=== PATIENT | male | born 1965 | race African-American/Black ===

== ENCOUNTER 2016-10-27 12:17 | Inpatient (IN) | payer SELFPAY ==
[~2016-10-27] VITALS: Ht 198.1 cm; Wt 158.0 kg
[2016-10-27] VITALS (7 sets, daily range): BP systolic 152–240; BP diastolic 70–102; PULSE 68–87; RESP 16–37; TEMP 97.1–97.7; O2SAT 96–100
[~2016-10-27 12:17] MED LIST: BENI40TA31 PO; BYST10TA2 PO; JANU50TA9 PO
--- NOTE | 2016-10-27 12:35 | PD ---
HPI Chief Complaint: Dizziness Time Seen by Provider: 12:35 Travel History International Travel<30 days: No Contact w/Intl Traveler<30days: No Traveled to known affect area: No History of Present Illness HPI Patient comes in complaining of dizziness that began last night. Patient denies any pain anywhere. Denies any headache, chest pain, shortness of breath , new numbness or tingling anywhere, fevers, nausea, vomiting, loss change in bowel or bladder, or visual changes. Patient states he started becoming diaphoretic approximately 2 hours prior to coming in. Patient states it last night he drank some water and try to lay down, but continued feeling dizzy today. Patient states he's not had his antihypertensive medications or diabetic medications for several months secondary to not having a primary care doctor currently. Patient denies taking any blood thinners. Patient reports he does have left-sided weakness from previous stroke that is unchanged since symptoms began. PFSH Past Medical History Cardiovascular Problems: Yes Diabetes: Yes Social History Alcohol Use: No Tobacco Use: No Substance Use: No Allergies-Medications (Allergen,Severity, Reaction): Coded Allergies: No Known Allergies (Unverified , 10/27/16) Reported Meds & Prescriptions Reported Meds & Active Scripts Active No Active Prescriptions or Reported Medications Review of Systems Except as stated in HPI: all other systems reviewed are Neg Physical Exam Narrative GENERAL: Well-developed, overly nourished, in no acute distress, and non-ill appearing. SKIN: Diaphoretic. HEAD: Atraumatic. Normocephalic. EYES: Pupils equal and round. EOMI. No scleral icterus. No injection or drainage. ENT: No nasal bleeding or discharge. Mucous membranes pink and moist. NECK: Trachea midline. No JVD. Supple. No nuclear rigidity. CARDIOVASCULAR: Regular rate and rhythm. No murmur appreciated. RESPIRATORY: No accessory muscle use. No respiratory distress. Clear to auscultation. Breath sounds equal bilaterally. MUSCULOSKELETAL: No obvious deformities. No clubbing. No cyanosis. No edema. Full range of motion. NEUROLOGICAL: Awake and alert. No obvious cranial nerve deficits. Motor grossly within normal limits. Normal speech. Smile is symmetrical. There is no deviation of the tongue. Equal rise and fall of the eyebrows. No pronator drift. PSYCHIATRIC: Appropriate mood and affect; insight and judgment normal. Data Data Last Documented VS Vital Signs Date Time Temp Pulse Resp B/P (MAP) Pulse Ox O2 Delivery O2 Flow Rate FiO2 10/27/16 12:44 68 22 185/79 (114) 99 Nasal Cannula 2.00 10/27/16 12:28 97.6 Orders Orders Electrocardiogram (10/27/16 12:31) Complete Blood Count With Diff (10/27/16 12:31) Comprehensive Metabolic Panel (10/27/16 12:31) Magnesium (Mg) (10/27/16 12:31) Ckmb (Isoenzyme) Profile (10/27/16 12:31) Troponin I (10/27/16 12:31) Act Partial Throm Time (Ptt) (10/27/16 12:31) Prothrombin Time / Inr (Pt) (10/27/16 12:31) Urinalysis - C+S If Indicated (10/27/16 12:31) Chest, Single Ap (10/27/16 12:31) Ct Brain W/O Iv Contrast(Rout) (10/27/16 12:31) Blood Glucose (10/27/16 12:31) Ecg Monitoring (10/27/16 12:31) Iv Access Insert/Monitor (10/27/16 12:31) Oximetry (10/27/16 12:31) Sodium Chloride 0.9% Flush (Ns Flush) (10/27/16 12:45) Labetalol Inj (Trandate Inj) (10/27/16 12:45) Beta Hydroxybutyrate (Acetone) (10/27/16 12:38) CKMB (10/27/16 12:35) CKMB% (10/27/16 12:35) Sodium Chlorid 0.9% 500 Ml Inj (Ns 500 M (10/27/16 13:45) Aspirin Chew (Aspirin Chew) (10/27/16 13:45) Admit Order (Ed Use Only) (10/27/16 13:55) Labs Laboratory Tests Test 10/27/16 12:35 White Blood Count 13.6 TH/MM3 Red Blood Count 4.91 MIL/MM3 Hemoglobin 16.1 GM/DL Hematocrit 47.5 % Mean Corpuscular Volume 96.7 FL Mean Corpuscular Hemoglobin 32.8 PG Mean Corpuscular Hemoglobin Concent 33.9 % Red Cell Distribution Width 12.6 % Platelet Count 250 TH/MM3 Mean Platelet Volume 9.4 FL Neutrophils (%) (Auto) 51.5 % Lymphocytes (%) (Auto) 40.4 % Monocytes (%) (Auto) 7.6 % Eosinophils (%) (Auto) 0.2 % Basophils (%) (Auto) 0.3 % Neutrophils # (Auto) 7.0 TH/MM3 Lymphocytes # (Auto) 5.5 TH/MM3 Monocytes # (Auto) 1.0 TH/MM3 Eosinophils # (Auto) 0.0 TH/MM3 Basophils # (Auto) 0.0 TH/MM3 CBC Comment AUTO DIFF Differential Total Cells Counted 100 Neutrophils % (Manual) 59 % Band Neutrophils % 4 % Lymphocytes % 36 % Basophils % 1 % Neutrophils # (Manual) 8.6 TH/MM3 Differential Comment FINAL DIFF MANUAL Platelet Estimate NORMAL Platelet Morphology Comment NORMAL Red Cell Morphology Comment NORMAL Prothrombin Time 10.6 SEC Prothromb Time International Ratio 1.0 RATIO Activated Partial Thromboplast Time 22.4 SEC Blood Urea Nitrogen 14 MG/DL Creatinine 1.11 MG/DL Random Glucose 250 MG/DL Total Protein 8.4 GM/DL Albumin 3.7 GM/DL Calcium Level 8.8 MG/DL Magnesium Level 2.0 MG/DL Alkaline Phosphatase 84 U/L Aspartate Amino Transf (AST/SGOT) 27 U/L Alanine Aminotransferase (ALT/SGPT) 42 U/L Total Bilirubin 0.6 MG/DL Sodium Level 138 MEQ/L Potassium Level 3.7 MEQ/L Chloride Level 101 MEQ/L Carbon Dioxide Level 24.1 MEQ/L Anion Gap 13 MEQ/L Estimat Glomerular Filtration Rate 84 ML/MIN Total Creatine Kinase 198 U/L Creatine Kinase MB 2.4 NG/ML Troponin I LESS THAN 0.02 NG/ML B-Hydroxybutyrate 0.29 MMOL/L [facility] Medical Decision Making Medical Screen Exam Complete: Yes Emergency Medical Condition: Yes Interpretation(s) EKG reviewed by Dr. Pepe shows sinus rhythm with ventricular rate of 75. T -wave inversions noted in leads 1 V5 and V6. No STEMI. Chest x-ray read by the radiologist shows: Mildly enlarged cardiac silhouette. Otherwise negative exam. Consider further evaluation with echocardiography. CT head read by the radiologist shows: 1. Small area of decreased density in the right centrum semi-ovale location. The appearance suggests a small subacute infarct. No focal or acute intracranial hemorrhage. Recommend MRI of the brain for further evaluation. 2. Bilateral chronic maxillary sinus disease, right greater than left. Differential Diagnosis CVA, TIA, acute coronary syndrome, accelerated hypertension, symptomatic hypertension, vertigo, electrolyte abnormality, DKA, other Narrative Course Patient was seen and examined. IV was established. Patient was placed on conveyor monitor. Initial laboratory and radiological studies were ordered. Discussed patient with Dr. Pepe, who recommends giving patient's 20 mg of IV labetalol for his pressure. Patient was given 500 cc of IV fluid. 1310 patient reassessed reports he is feeling much better since his blood pressure has come down. Reports dizziness has resolved. He states he is just hungry currently. And reviewing lab and radiological studies with the exception of urine and has not been collected yet, discussed all findings and plan of care with the patient , who is agreeable for admission. All questions were answered. Patient was given a dose of aspirin. Discussed patient with Dr. Pepe, who is in agreement with plan of care and disposition. Discussed patient with hospitalist , who is agreeable to this patient. Physician Communication Physician Communication [phone] Piers, who is agreeable to admit the patient. Diagnosis Primary Impression: CVA (cerebral infarction) Additional Impression: Hypertension Qualified Codes: I10 - Essential (primary) hypertension Admitting Information Admitting Physician Requests: Admit Scripts No Active Prescriptions or Reported Meds Condition: Star Malagon Oct 27, 2016 12:35
[2016-10-27] MEDS ORDERED: LABETALOL HCL 100 MG/20 ML VIAL IV PUSH ONE (12:45)
[2016-10-27 12:49] LABS: BASOPHIL % 0.3 % (0.0-2.0); EOSINOPHIL % 0.2 % (0.0-4.0); HEMATOCRIT 47.5 % (39.0-51.0); LYMPH % 40.4 % (9.0-44.0); LYMPHOCYTE # 5.5 TH/MM3 (1.0-4.8); MEAN CELL VOLUME 96.7 FL (80.0-100.0); MEAN CORPUSCULAR HEMOGLOBIN 32.8 PG (27.0-34.0); MEAN CORPUSCULAR HGB CONC 33.9 % (32.0-36.0); MONO % 7.6 % (0.0-8.0); NEUT % 51.5 % (16.0-70.0); PLATELET COUNT 250 TH/MM3 (150-450); RED BLOOD COUNT 4.91 MIL/MM3 (4.50-5.90); RED CELL DISTRIBUTION WIDTH 12.6 % (11.6-17.2); WHITE BLOOD COUNT 13.6 TH/MM3 (4.0-11.0)
[2016-10-27 12:50] LABS: HEMO FLAGS AUTO DIFF
[2016-10-27 12:58] LABS: APTT (PATIENT) 22.4 SEC (24.3-30.1); PROTHROMBIN TIME - PATIENT 10.6 SEC (9.8-11.6)
--- NOTE | 2016-10-27 13:02 | RADRPT ---
EXAM DATE/TIME: 10/27/2016 13:01 CORRECTION Corrected on: October 30, 2016; removed cc physician GILBERTO COMPARISON: No previous studies available for comparison. INDICATIONS : Palpitations MEDICAL HISTORY : Hypertension. Diabetes mellitus type II. SURGICAL HISTORY : None. ENCOUNTER: Initial ACUITY: 2 days PAIN SCORE: 0/10 LOCATION: chest FINDINGS: A single view of the chest demonstrates the lungs to be symmetrically aerated without evidence of mas s, infiltrate or effusion. The heart size appears mildly enlarged. The pulmonary vasculature is gross ly normal in caliber. Osseous structures are intact. CONCLUSION: Mildly enlarged cardiac silhouette. Otherwise negative exam. Consider further evaluation with echocar diography. . Purvi Aguilar MD on October 27, 2016 at 12:59 Board Certified Radiologist. This report was verified electronically. on October 30, 2016 at 12:30 Board Certified Radiologist. This report was verified electronically.
[2016-10-27 13:13] LABS: ALKALINE PHOSPHATASE 84 U/L (45-117); ALT (GPT) 42 U/L (12-78); CREATINE KINASE 198 U/L (39-308); TOTAL BILIRUBIN ADULT 0.6 MG/DL (0.2-1.0)
[2016-10-27 13:14] LABS: ANION GAP 13 MEQ/L (5-15); AST (GOT) 27 U/L (15-37); BICARBONATE 24.1 MEQ/L (21.0-32.0); BLOOD UREA NITROGEN 14 MG/DL (7-18); CHLORIDE 101 MEQ/L (98-107); GLOMERULAR FILTRATION RATE 84 ML/MIN (>89); POTASSIUM 3.7 MEQ/L (3.5-5.1); SODIUM (NA) 138 MEQ/L (136-145)
[2016-10-27 13:26] LABS: CKMB 2.4 NG/ML (0.5-3.6)
--- NOTE | 2016-10-27 13:37 | RADRPT ---
EXAM DATE/TIME: 10/27/2016 13:21 CORRECTION Corrected on: October 30, 2016; removed cc physician GILBERTO COMPARISON: No previous studies available for comparison. INDICATIONS : Dizziness, diaphoretic,weakness. RADIATION DOSE: 69.66 CTDIvol (mGy) ; Patient body habitus MEDICAL HISTORY : Cardiovascular disease. Cerebrovascular disease. Hypertension.Diabetes. SURGICAL HISTORY : None. ENCOUNTER: Initial ACUITY: 1 day PAIN SCALE: 0/10 LOCATION: cranial TECHNIQUE: Multiple contiguous axial images were obtained of the head. Using automated exposure control and adj ustment of the mA and/or kV according to patient size, radiation dose was kept as low as reasonably a chievable to obtain optimal diagnostic quality images. DICOM format image data is available electro nically for review and comparison. FINDINGS: CEREBRUM: The ventricles are normal for age. No evidence of midline shift, mass lesion, hemorrhage. There is a small area of decreased density in the right centrum semi-ovale location suggestive of a focal small subacute infarct. No extra-axial fluid collections are seen. POSTERIOR FOSSA: The cerebellum and brainstem are intact. The 4th ventricle is midline. The cerebellopontine angle i s unremarkable. EXTRACRANIAL: The visualized portion of the orbits is intact. Chronic sinus disease in the maxillary sinuses bilate rally, right greater than left. SKULL: The calvaria is intact. No evidence of skull fracture. CONCLUSION: 1. Small area of decreased density in the right centrum semi-ovale location. The appearance suggests a small subacute infarct. No focal or acute intracranial hemorrhage. Recommend MRI of the brain for f urther evaluation. 2. Bilateral chronic maxillary sinus disease, right greater than left. Chepe Macario MD on October 27, 2016 at 13:34 Board Certified Radiologist. This report was verified electronically. on October 30, 2016 at 12:29 Board Certified Radiologist. This report was verified electronically.
[2016-10-27 13:40] LABS: BANDS 4 % (0-6); BASOPHILS 1 % (0-2); NEUTROPHIL # MANUAL DIFF 8.6 TH/MM3 (1.8-7.7); POLYS (SEG NEUTROPHILS) 59 % (16-70); WBC DIFF SAMPLE 100
[2016-10-27 13:41] LABS: PLATELET ESTIMATE SMEAR NORMAL (NORMAL); PLATELET MORPHOLOGY NORMAL (NORMAL); SCAN/DIFF FINAL DIFF MANUAL
[2016-10-27] MEDS ORDERED: SODIUM CHLORID 0.9% 500 ML INJ 500 ML IV ONE (13:45)
[2016-10-27] MEDS ORDERED: ASPIRIN 81 MG CHEW TAB PO ONE (13:45)
[2016-10-27] MEDS ORDERED: GLUCAGON 1 MG/ML VIAL OTHER PRN (14:45)
[2016-10-27] MEDS ORDERED: ONDANSETRON HCL 4 MG/2 ML VIAL IVP PRN (14:45)
[2016-10-27] MEDS ORDERED: ENALAPRILAT 1.25 MG/ML VIAL IV PRN (14:45)
[2016-10-27] MEDS ORDERED: DEXTROSE 50% IN WATER 50 ML VIAL(D50) IV PRN (14:45)
[2016-10-27] MEDS ORDERED: SODIUM CHLORIDE 0.9% FLUSH 5 ML FLUSH IV FLUSH PRN (14:45)
[2016-10-27] MEDS ORDERED: ACETAMINOPHEN 325 MG TAB PO PRN ×2 (14:45)
--- NOTE | 2016-10-27 14:47 | HHI.HP ---
[facility] Service [facility] Primary Care Physician No Primary Care Physician Admission Diagnosis CVA, symptomatic hypertension Diagnoses: (1) Alcohol abuse (2) Obesity (BMI 30-39.9) (3) Hyperlipidemia (4) Diabetes mellitus type 2, uncontrolled, with complications (5) Hypertensive emergency (6) CVA (cerebral infarction) Chief Complaint: Dizziness and profuse diaphoresis Travel History International Travel<30 Days: No Contact w/Intl Traveler <30 Da: No Traveled to Known Affected Are: No History of Present Illness 51-year-old male with multiple comorbidities including hypertension, hyperlipidemia, diabetes type 2, previous CVA in 2012 with left side weakness came to the ED for evaluation of worsening symptom dizziness, lightheadedness and profuse diaphoresis. Patient stated, episode of dizziness started yesterday but did not improve today after he woke up from sleep. They' re on 11:30, patient's notice that his equilibrium was off. This was followed by more episode of dizziness as well as 1 nonbloody emesis. He also reported a sensation of room spinning. Arrival in the ED, patient was noted to be extremely diaphoretic which he states did start 2 hours prior to coming to the ED. he was noted to have BP of 240/102 which subsequently improved to 163/70 with treatment. Patient has run out of his medications over the past [address] revealed small subacute CVA. He denies any visual change, slurred speech has no GI bleed. Review of Systems Except as stated in HPI: all other systems reviewed are Neg Past Family Social History Past Medical History Diabetes Hyperlipidemia Hypertension CVA 2013 Alcohol abuse Past Surgical History Denies any surgeries Reported Medications Not Currently on any medication Allergies: Coded Allergies: No Known Allergies (Unverified , 10/27/16) Family History Mother had diabetes type 2 Father had heart problem Social History Alcohol Use: No Tobacco Use: + Substance Use: No Physical Exam Vital Signs Vital Signs Date Time Temp Pulse Resp B/P (MAP) Pulse Ox O2 Delivery O2 Flow Rate FiO2 10/27/16 14:21 97.6 72 21 163/70 (101) 100 10/27/16 12:44 68 22 185/79 (114) 99 Nasal Cannula 2.00 10/27/16 12:42 24 27 97 Room Air 10/27/16 12:34 74 37 224/100 (141) 97 Room Air 10/27/16 12:28 97.6 77 24 224/100 (141) 98 Room Air 10/27/16 12:21 97.7 76 24 240/102 (148) 96 Room Air Physical Exam GENERAL: This is a well-nourished, well-developed obese patient, in no apparent distress. SKIN: No rashes, ecchymoses or lesions. Cool and dry. HEAD: Atraumatic. Normocephalic. No temporal or scalp tenderness. EYES: Pupils equal round and reactive. Extraocular motions intact. No scleral icterus. No injection or drainage. ENT: Nose without bleeding, purulent drainage or septal hematoma. Throat without erythema, tonsillar hypertrophy or exudate. Uvula midline. Airway patent. NECK: Trachea midline. No JVD or lymphadenopathy. Supple, nontender, no meningeal signs. CARDIOVASCULAR: Regular rate and rhythm without murmurs, gallops, or rubs. RESPIRATORY: Clear to auscultation. Breath sounds equal bilaterally. No wheezes , rales, or rhonchi. GASTROINTESTINAL: Abdomen soft, non-tender, nondistended. No hepato-splenomegaly , or palpable masses. No guarding. MUSCULOSKELETAL: Extremities without clubbing, cyanosis, or edema. No joint tenderness, effusion, or edema noted. No calf tenderness. Negative Homans sign bilaterally. NEUROLOGICAL: Awake and alert. Cranial nerves II through XII intact. Mild Left- sided weakness. Normal speech. Laboratory Laboratory Tests Test 10/27/16 12:35 White Blood Count 13.6 Red Blood Count 4.91 Hemoglobin 16.1 Hematocrit 47.5 Mean Corpuscular Volume 96.7 Mean Corpuscular Hemoglobin 32.8 Mean Corpuscular Hemoglobin Concent 33.9 Red Cell Distribution Width 12.6 Platelet Count 250 Mean Platelet Volume 9.4 Neutrophils (%) (Auto) 51.5 Lymphocytes (%) (Auto) 40.4 Monocytes (%) (Auto) 7.6 Eosinophils (%) (Auto) 0.2 Basophils (%) (Auto) 0.3 Neutrophils # (Auto) 7.0 Lymphocytes # (Auto) 5.5 Monocytes # (Auto) 1.0 Eosinophils # (Auto) 0.0 Basophils # (Auto) 0.0 CBC Comment AUTO DIFF Differential Total Cells Counted 100 Neutrophils % (Manual) 59 Band Neutrophils % 4 Lymphocytes % 36 Basophils % 1 Neutrophils # (Manual) 8.6 Differential Comment FINAL DIFF MANUAL Platelet Estimate NORMAL Platelet Morphology Comment NORMAL Red Cell Morphology Comment NORMAL Prothrombin Time 10.6 Prothromb Time International Ratio 1.0 Activated Partial Thromboplast Time 22.4 Blood Urea Nitrogen 14 Creatinine 1.11 Random Glucose 250 Total Protein 8.4 Albumin 3.7 Calcium Level 8.8 Magnesium Level 2.0 Alkaline Phosphatase 84 Aspartate Amino Transf (AST/SGOT) 27 Alanine Aminotransferase (ALT/SGPT) 42 Total Bilirubin 0.6 Sodium Level 138 Potassium Level 3.7 Chloride Level 101 Carbon Dioxide Level 24.1 Anion Gap 13 Estimat Glomerular Filtration Rate 84 Total Creatine Kinase 198 Creatine Kinase MB 2.4 Troponin I LESS THAN 0.02 B-Hydroxybutyrate 0.29 Result Diagram: 10/27/16 1235 10/27/16 1235 Imaging Last Impressions Head CT 10/27/16 1231 Signed Impressions: Service Date/Time: Thursday, October 27, 2016 13:21 - CONCLUSION: 1. Small area of decreased density in the right centrum semi-ovale location. The appearance suggests a small subacute infarct. No focal or acute intracranial hemorrhage. Recommend MRI of the brain for further evaluation. 2. Bilateral chronic maxillary sinus disease, right greater than left. Chepe Macario MD Chest X-Ray 10/27/16 1231 Signed Impressions: Service Date/Time: Thursday, October 27, 2016 13:01 - CONCLUSION: Mildly enlarged cardiac silhouette. Otherwise negative exam. Consider further evaluation with echocardiography. . MD Raven Sunshinei VTE Risk Assessment Caprini VTE Risk Assessment: No/Low Risk (score <= 1) Caprini Risk Assessment Model Point Value = 1 Point Value = 2 Point Value = 3 Point Value = 5 Age 41-60 Minor surgery BMI > 25 kg/m2 Swollen legs Varicose veins or History of unexplained or recurrent spontaneous Oral contraceptives or hormone replacement Sepsis (< 1 month) Serious lung disease, including pneumonia (< 1 month) Abnormal pulmonary function Acute myocardial infarction Congestive heart failure (< 1 month) History of inflammatory bowel disease Medical patient at bed rest Age 61-74 Arthroscopic surgery Major open surgery (> 45 min) Laparoscopic surgery (> 45 min) Malignancy Confined to bed (> 72 hours) Immobilizing plaster cast Central venous access Age >= 75 History of VTE Family history of VTE Factor V Leiden Prothrombin [id number] Lupus anticoagulant Anticardiolipin antibodies Elevated serum homocysteine Heparin-induced thrombocytopenia Other congenital or acquired thrombophilia Stroke (< 1 month) Elective arthroplasty Hip, pelvis, or leg fracture Acute spinal cord injury (< 1 month) Prophylaxis Regimen Total Risk Factor Score Risk Level Prophylaxis Regimen 0-1 Low Early ambulation 2 Moderate Order ONE of the following: *Sequential Compression Device (SCD) *Heparin 5000 units SQ BID 3-4 Higher Order ONE of the following medications: *Heparin 5000 units SQ TID *Enoxaparin/Lovenox 40 mg SQ daily (WT < 150 kg, CrCl > 30 mL/min) *Enoxaparin/Lovenox 30 mg SQ daily (WT < 150 kg, CrCl > 10-29 mL/min) *Enoxaparin/Lovenox 30 mg SQ BID (WT < 150 kg, CrCl > 30 mL/min) AND/OR *Sequential Compression Device (SCD) 5 or more Highest Order ONE of the following medications: *Heparin 5000 units SQ TID (Preferred with Epidurals) *Enoxaparin/Lovenox 40 mg SQ daily (WT < 150 kg, CrCl > 30 mL/min) *Enoxaparin/Lovenox 30 mg SQ daily (WT < 150 kg, CrCl > 10-29 mL/min) *Enoxaparin/Lovenox 30 mg SQ BID (WT < 150 kg, CrCl > 30 mL/min) AND *Sequential Compression Device (SCD) Assessment and Plan Problem List: (1) CVA (cerebral infarction) ICD Code: I63.9 - CVA (cerebral infarction) Status: Acute (2) Hypertensive emergency ICD Code: I16.1 - Hypertensive emergency (3) Diabetes mellitus type 2, uncontrolled, with complications ICD Code: E11.8 - Type 2 diabetes mellitus with unspecified complications; E11.65 - Type 2 diabetes mellitus with hyperglycemia (4) Obesity (BMI 30-39.9) ICD Code: E66.9 - Obesity, unspecified (5) Hyperlipidemia ICD Code: E78.5 - Hyperlipidemia, unspecified (6) Alcohol abuse ICD Code: F10.10 - Alcohol abuse, uncomplicated Assessment and Plan 51-year-old man with Small subacute infarct Patient with previous history of CVA in 2013 Start aspirin and Lipitor NIHSS, neuro check, monitor on telemetry Allowed permissive hypertension, IV Vasotec when necessary Check lipid profile and hemoglobin A1c Check carotid ultrasound and consider EEG Head CT 10/27/16 noted and review by me with finding of small subacute infarct Check brain MRI, MRA, carotid ultrasound Will consider neuro consult PT consult to treat and eval Hypertensive emergency Resolved status post treatment in ED Check 2-D echo Elevated cardiac enzyme Likely due to hypertensive emergency However will rule out ACS per protocol with serial cardiac enzyme and EKGs 2-D echo pending Cardiac monitoring Diabetes type 2, uncontrolled Check hemoglobin A1c Start Levemir 15 units at bedtime and medium sliding scale insulin Hyperlipidemia Check lipid profile Start Lipitor Leukocytosis Stress reactive, continue to monitor Alcohol abuse Alcohol cessation counseling provided ESTER Garza protocol DVT prophylaxis: Heparin Code Status Full code Discussed Condition With Patient, , ED PA Physician Certification 2 Midnight Certification Type: Admission for Inpatient Services Order for Inpatient Services The services are ordered in accordance with Medicare regulations or non- Medicare payer requirements, as applicable. In the case of services not specified as inpatient-only, they are appropriately provided as inpatient services in accordance with the 2-midnight benchmark. Estimated LOS (days): 2 days is the estimated time the patient will need to remain in the hospital, assuming treatment plan goals are met and no additional complications. Post-Hospital Plan: Not yet determined Valentin Pires MD Oct 27, 2016 14:47
[2016-10-27] MEDS ORDERED: FLUMAZENIL 0.5 MG/5 ML VIAL IV PUSH PRN (15:15)
[2016-10-27] MEDS ORDERED: LORazepam 2 MG TAB PO PRN (15:15)
[2016-10-27] MEDS ORDERED: LORazepam 2 MG/ML VIAL IV PUSH PRN ×4 (15:15)
[2016-10-27] MEDS ORDERED: LORazepam 1 MG TAB PO PRN (15:15)
[2016-10-27] MEDS: HEPARIN SODIUM - SQ 10,000 UNITS/ML VIAL SQ SCH (15:59)
[2016-10-27] MEDS: INSULIN ASPART SUPPLEMENTAL SCALE SQ SCH ×2 (16:00→21:38)
[2016-10-27 16:19] LABS: BLOOD, URINE NEG (NEG); GLUCOSE,URINE 1000 mg/dL (NEG); KETONE, URINE 10 mg/dL (NEG); NITRITE,URINE NEG (NEG); PH, URINE 6.5 (5.0-8.5); SQUAMOUS EPITHELIAL CELL URINE <1 /hpf (0-5); URINE COLOR YELLOW (YELLW/STRAW)
[2016-10-27 16:20] LABS: COMMENT (UR) CULT NOT INDICATED; CULTURE IF INDICATED CULT NOT INDICATED
--- NOTE | 2016-10-27 17:17 | RADRPT ---
EXAM DATE/TIME: 10/27/2016 16:27 [facility] COMPARISON: No previous studies available for comparison. INDICATIONS : Dizziness, Sweatiness, Weakness and Hypertension MEDICAL HISTORY : Stroke Hypertension. Diabetes mellitus type 1. SURGICAL HISTORY : ENCOUNTER: Initial ACUITY: 1 day PAIN SCORE: 0/10 LOCATION: cranial TECHNIQUE: Multiplanar, multisequence MRI of the brain was performed without contrast. FINDINGS: CEREBRUM: The ventricles are normal for age. No evidence of midline shift, mass lesion, hemorrhage or acute in farction. No extraaxial fluid collections are seen. The pituitary gland and suprasellar cistern are normal in configuration. WHITE MATTER: Scattered chronic flair signal abnormality seen in the periventricular white matter of both vertebral hemispheres, mild to moderate in a patient this age. POSTERIOR FOSSA: The cerebellum and brainstem are intact. The 4th ventricle is midline. The cerebellopontine angle is unremarkable. The cerebellar tonsils are normal in position. DIFFUSION IMAGING: There is a 3.8 x 4.9 cm area of restricted diffusion inferomedially of the right cerebellar hemispher e. The abnormality involves the vermis and also focally crosses the midline into the medial posterior left cerebellar hemisphere. There is no restricted diffusion above the tentorium. EXTRACRANIAL: The visualized portions of the orbits and paranasal sinuses are unremarkable. CONCLUSION: 1. Relatively large acute infarct of the cerebellum as above, predominantly involving the inferomedia l portions of the right cerebellar hemisphere. 2. No acute supratentorial abnormality demonstrated. There are mild to moderate chronic periventricul ar white matter changes. 3. No bleed, mass or midline shift. No cerebellar tonsillar herniation at this time. Tres Sequeira MD on October 27, 2016 at 17:11 Board Certified Radiologist. This report was verified electronically.
--- NOTE | 2016-10-27 17:52 | RADRPT ---
EXAM DATE/TIME: 10/27/2016 16:27 [facility] COMPARISON: No previous studies available for comparison. INDICATIONS : Dizziness, Sweatiness, Hypertension, Weakness MEDICAL HISTORY : Stroke Diabetes mellitus type 1. Hypertension. SURGICAL HISTORY : None. ENCOUNTER: ACUITY: 1 day PAIN SCORE: 0/10 LOCATION: cranial Please note a normal MRA of the brain does not entirely exclude the possibility of a small aneurysm, nor the possibility of distal intracranial vessel disease. TECHNIQUE: 3D time of flight MRA was performed. Source images, multiplanar STS MIP, and 3D volume MIP reconstru ctions were reviewed. FINDINGS: There is excellent visualization of the major intracranial arteries out to the second-order branch ve ssels. There is no evidence for aneurysm, vessel truncation or stenosis, and no evidence for vascula r malformation. CONCLUSION: No acute disease. Binu Powell MD on October 27, 2016 at 17:49 Board Certified Radiologist. This report was verified electronically.
[2016-10-27] MEDS: SODIUM CHLORIDE 0.9% FLUSH 5 ML FLUSH IV FLUSH SCH (21:00)
[2016-10-27] MEDS: ATORVASTATIN 10 MG TAB PO SCH (21:16)
[2016-10-27] MEDS: SODIUM CHLORIDE 0.9% FLUSH 10 ML FLUSH IVF PRN (21:16)
[2016-10-27] MEDS: INSULIN DETEMIR 100 UNITS/ML VIAL SQ SCH (21:37)
[2016-10-27 21:57] LABS: CREATINE KINASE 144 U/L (39-308)
--- NOTE | 2016-10-27 22:43 | RADRPT ---
EXAM DATE/TIME: 10/27/2016 20:43 [place] COMPARISON: No previous studies available for comparison. INDICATIONS : Cerebrovascular accident. MEDICAL HISTORY : Arthritis. Hypertension. Hypercholesterolemia. CVA. Diabetes. SURGICAL HISTORY : Total knee replacement, right. Total knee replacement, left. ENCOUNTER: Initial ACUITY: 1 day PAIN SCORE: 0/10 LOCATION: Bilateral neck PEAK SYSTOLIC VELOCITIES (cm/sec): ICA/CCA RATIO: Right: 0.7 Left: 0.6 ICA: Right: 95 Left: 82 CCA: Right: 148 Left: 217 ECA: Right: 122 Left: 220 VERTEBRAL: Right: 35 antegrade Left: 54 antegrade Elevated flow velocities and ICA/CCA ratios have been found to correlate with increased degrees of vessel stenosis, calculated as percentage of diameter relative to a normal segment of distal ICA/CCA FINDINGS: RIGHT CAROTID: No significant stenosis is visualized. The waveforms are within normal limits. LEFT CAROTID: Elevated peak systolic velocities are noted within the left common and external carotid arteries in t he range of 50-69%. No internal carotid artery peak systolic velocity elevation is noted. The wavefor ms are within normal limits. VERTEBRAL ARTERIES: Antegrade flow is seen in both vertebral arteries. MISCELLANEOUS: None. CONCLUSION: 1. No hemodynamically significant stenosis involving the internal carotid arteries bilaterally. 2. Probable 50-69% stenoses involving the left common and external carotid arteries. Binu Powell MD on October 27, 2016 at 22:39 Board Certified Radiologist. This report was verified electronically.
[2016-10-28] VITALS (8 sets, daily range): BP systolic 168–194; BP diastolic 77–90; PULSE 77–93; RESP 16–20; TEMP 97.8–98.6; O2SAT 95–98
[2016-10-28 01:13] LABS: CREATINE KINASE 139 U/L (39-308)
[2016-10-28] MEDS: HEPARIN SODIUM - SQ 10,000 UNITS/ML VIAL SQ SCH ×2 (03:28→14:45)
[2016-10-28] MEDS: INSULIN ASPART SUPPLEMENTAL SCALE SQ SCH ×4 (06:34→21:00)
[2016-10-28 08:22] LABS: HDL CHOLESTEROL 46.7 MG/DL (40.0-60.0)
[2016-10-28] MEDS: SODIUM CHLORIDE 0.9% FLUSH 5 ML FLUSH IV FLUSH SCH ×2 (09:00→21:00)
[2016-10-28] MEDS ORDERED: LISINOPRIL 20 MG TAB PO SCH (09:00)
[2016-10-28] MEDS: THIAMINE HCL 100 MG TAB PO SCH (09:53)
[2016-10-28] MEDS: ASPIRIN 81 MG CHEW TAB PO SCH (09:53)
[2016-10-28] MEDS: SODIUM CHLORIDE 0.9% FLUSH 10 ML FLUSH IVF PRN (09:53)
--- NOTE | 2016-10-28 11:25 | HHI.PR ---
Subjective Remarks Follow-up CVA 10/28/16-patient seen and examined, brain MRI positive for large acute infarct of the cerebellum. Although patient continues to complain of equilibrium problem as he described it, he reported improvement of symptoms since admission. Objective Vitals Vital Signs Date Time Temp Pulse Resp B/P (MAP) Pulse Ox O2 Delivery O2 Flow Rate FiO2 10/28/16 08:16 97.8 81 20 172/81 (111) 97 10/28/16 04:00 98.6 87 20 194/88 (123) 95 10/28/16 03:53 81 10/28/16 00:20 98.0 88 16 192/87 (122) 98 10/27/16 20:00 97.1 87 18 217/93 (134) 97 10/27/16 18:02 10/27/16 16:00 74 16 152/73 (99) 100 Room Air 10/27/16 14:21 97.6 72 21 163/70 (101) 100 10/27/16 12:44 68 22 185/79 (114) 99 Nasal Cannula 2.00 10/27/16 12:42 24 27 97 Room Air 10/27/16 12:34 74 37 224/100 (141) 97 Room Air 10/27/16 12:28 97.6 77 24 224/100 (141) 98 Room Air 10/27/16 12:21 97.7 76 24 240/102 (148) 96 Room Air I/O 10/27/16 10/27/16 10/27/16 10/28/16 10/28/16 10/28/16 07:00 15:00 23:00 07:00 15:00 23:00 Intake Total 500 ml Output Total 650 ml Balance 500 ml -650 ml Intake IV Total 500 ml Output Urine Total 650 ml # Voids 1 1 Result Diagram: 10/27/16 1235 10/27/16 1235 Imaging Last Impressions Head CT 10/27/16 1231 Signed Impressions: Service Date/Time: Thursday, October 27, 2016 13:21 - CONCLUSION: 1. Small area of decreased density in the right centrum semi-ovale location. The appearance suggests a small subacute infarct. No focal or acute intracranial hemorrhage. Recommend MRI of the brain for further evaluation. 2. Bilateral chronic maxillary sinus disease, right greater than left. Chepe Macario MD Chest X-Ray 10/27/16 1231 Signed Impressions: Service Date/Time: Thursday, October 27, 2016 13:01 - CONCLUSION: Mildly enlarged cardiac silhouette. Otherwise negative exam. Consider further evaluation with echocardiography. . Purvi Aguilar MD Head Magnetic Resonance Angiography 10/27/16 0000 Signed Impressions: Service Date/Time: Thursday, October 27, 2016 16:27 - CONCLUSION: No acute disease. Binu Powell MD Carotid Artery Ultrasound 10/27/16 0000 Signed Impressions: Service Date/Time: Thursday, October 27, 2016 20:43 - CONCLUSION: 1. No hemodynamically significant stenosis involving the internal carotid arteries bilaterally. 2. Probable 50-69%% stenoses involving the left common and external carotid arteries. Binu Powell MD Brain MRI 10/27/16 0000 Signed Impressions: Service Date/Time: Thursday, October 27, 2016 16:27 - CONCLUSION: 1. Relatively large acute infarct of the cerebellum as above, predominantly involving the inferomedial portions of the right cerebellar hemisphere. 2. No acute supratentorial abnormality demonstrated. There are mild to moderate chronic periventricular white matter changes. 3. No bleed, mass or midline shift. No cerebellar tonsillar herniation at this time. Tres Sequeira MD Objective Remarks GENERAL: NAD SKIN: Warm and dry. HEAD: Normocephalic. EYES: No scleral icterus. No injection or drainage. NECK: Supple, trachea midline. No JVD or lymphadenopathy. CARDIOVASCULAR: Regular rate and rhythm without murmurs, gallops, or rubs. RESPIRATORY: Breath sounds equal bilaterally. No accessory muscle use. GASTROINTESTINAL: Abdomen soft, non-tender, nondistended. MUSCULOSKELETAL: No cyanosis, or edema. BACK: Nontender without obvious deformity. No CVA tenderness. A/P Problem List: (1) Acute cerebrovascular accident (CVA) of cerebellum ICD Code: I63.9 - Cerebral infarction, unspecified (2) CVA (cerebral infarction) ICD Code: I63.9 - CVA (cerebral infarction) Status: Acute (3) Hypertensive emergency ICD Code: I16.1 - Hypertensive emergency (4) Diabetes mellitus type 2, uncontrolled, with complications ICD Code: E11.8 - Type 2 diabetes mellitus with unspecified complications; E11.65 - Type 2 diabetes mellitus with hyperglycemia (5) Obesity (BMI 30-39.9) ICD Code: E66.9 - Obesity, unspecified (6) Hyperlipidemia ICD Code: E78.5 - Hyperlipidemia, unspecified (7) Alcohol abuse ICD Code: F10.10 - Alcohol abuse, uncomplicated Assessment and Plan 51-year-old man with Acute CVA of the cerebellum Patient with previous history of CVA in 2013 Continue aspirin and Lipitor NIHSS, neuro check, monitor on telemetry Allow permissive hypertension, IV Vasotec when necessary lipid profile 139 and hemoglobin A1c pending carotid ultrasound wnl Head CT 10/27/16 noted and review by me with finding of small subacute infarct brain MRI with acute infarct of the cerebellum, brain MRI MRA negative Neuro consultation Consult rehabilitation medicine; OT consultation pending Holter monitoring PT to treat and eval Hypertensive emergency Resolved status post treatment in ED Check 2-D echo Elevated cardiac enzyme Likely due to hypertensive emergency ACS ruled out per protocol with serial cardiac enzyme and EKGs 2-D echo pending Diabetes type 2, uncontrolled hemoglobin A1c pending Continue Levemir 15 units at bedtime and medium sliding scale insulin Hyperlipidemia lipid profile with LDL of 139 Continue Lipitor Leukocytosis Stress reactive, continue to monitor Alcohol abuse Alcohol cessation counseling provided ESTER Garza protocol DVT prophylaxis: Heparin Valentin Pires MD Oct 28, 2016 11:25
--- NOTE | 2016-10-28 11:37 | MB ---
cc: CONSUELO ARDON M.D. DATE OF CONSULTATION: 10/28/2016 HISTORY OF PRESENT ILLNESS He is a 51-year-old with history of dizziness since Friday, became intermittently worse and had difficulty with his equilibrium, had difficulty even walking at some point. His blood pressure was reportedly up to 240/102 in the emergency room. Subsequently, an MRI of brain had showed a relatively large right cerebellar infarct, acute. EKG is sinus rhythm and MRA head was negative as well as carotid ultrasound which is negative for internal carotid artery disease. The patient describes that despite of having a history of diabetes mellitus, hyperlipidemia, hypertension, he has been taking no medications at all for the past 2 years. He also had a stroke in 2013 causing left-sided weakness. He denies smoking or drinking alcohol, though the H&P is apparently positive for smoking. NEUROLOGIC EXAMINATION On exam he was awake, alert, oriented, obese and he is in good spirits and pleasant and cooperative. Ocular movements and visual gray full. Mild facial asymmetry when he talks but when he smiles and there was no obvious weakness. The speech was clear. There is no arm drift but he seems to have slightly weak ecd on the left as well as left lower extremity, though he gives away on the exam. Reflexes diminished but present including the ankles, possibly brisk on the left. Plantar response equivocal on the left, flexor on the right and position sense was appropriate. LABORATORY DATA The WBC was 13.6, hemoglobin 16.1, platelets 250. Basic chemistry normal except for glucose 250. LDL is elevated to 139. ASSESSMENT 1. Acute right cerebellar stroke. 2. Previous stroke in 2013 causing left-sided weakness. 3. Diabetes mellitus type 2, hyperlipidemia, hypertension, obesity and possible sleep apnea. 4. Noncompliance with medical care. He was started on a number of medications including aspirin, lisinopril, statin, thiamine. I discussed with the patient the need for aggressive general medical care for the major risk factors for a stroke, otherwise rehab. He will need ___ study for sleep apnea evaluation as outpatient. I will follow the neurological course. Thank you for asking us to assist in his care. MD PRAMOD Daniels/DARIEN /10:08 AM /11:21 AM
--- NOTE | 2016-10-28 15:27 | EKG ---
Date Performed: 10/27/2016 Time Performed: 12:28:46 PTAGE: 51 years EKG: Sinus rhythm MARKED LEFT AXIS DEVIATION LEFT VENTRICULAR HYPERTROPHY AND ST-T CHANGE ABNORMAL ECG NO PREVIOUS TRACING DOCTOR: Dylan Ahumada Interpretating Date/Time 10/28/2016 15:27:21
--- NOTE | 2016-10-28 15:28 | EKG ---
Date Performed: 10/27/2016 Time Performed: 20:10:27 PTAGE: 51 years EKG: Sinus rhythm MARKED LEFT AXIS DEVIATION LEFT VENTRICULAR HYPERTROPHY AND ST-T CHANGE ABNORMAL ECG Since PREVIOUS TRACING , no significant change noted PREVIOUS TRACIN10/27/2016 12.28 DOCTOR: Dylan Ahumada Interpretating Date/Time 10/28/2016 15:27:40
--- NOTE | 2016-10-28 15:30 | EKG ---
Date Performed: 10/28/2016 Time Performed: 02:34:06 PTAGE: 51 years EKG: Sinus rhythm Possible left anterior fascicular block Left ventricular hypertrophy Extensive T wave changes may be due to hypertrophy and/or ischemia Abnormal ECG Compared to PREVIOUS TRACING , precordial T-wave changes are slightly more prominent, consider ischem ia. PREVIOUS TRACIN10/27/2016 20.10 DOCTOR: Dylan Ahumada Interpretating Date/Time 10/28/2016 15:30:04
[2016-10-28 16:12] LABS: HEMOGLOBIN A1b 1.7 %; HEMOGLOBIN Ao 84.9 %; HEMOGLOBIN LA1C 2.5 %; HEMOGLOBIN P3 3.8 %
--- NOTE | 2016-10-28 20:07 | ECHRPT ---
Indication: CVA/ TIA CONCLUSIONS Normal left ventricular size. The left ventricular systolic function is normal with an estimated ejection fraction in the range of 60-65%. Moderate concentric left ventricular hypertrophy. Aortic valve sclerosis is present. Trace aortic valve regurgitation. BP: / HR: Rhythm: Sinus MEASUREMENTS (Male / Female) Normal Values Technical Quality:Very technically difficult study 2D ECHO LV Diastolic Diameter PLAX 5.2 cm 4.2 - 5.9 / 3.9 - 5.3 cm LV Systolic Diameter PLAX 3.8 cm IVS Diastolic Thickness 1.4 cm 0.6 - 1.0 / 0.6 - 0.9 cm LVPW Diastolic Thickness 1.4 cm 0.6 - 1.0 / 0.6 - 0.9 cm LV Relative Wall Thickness 0.6 LVOT Diameter 2.3 cm Aortic Root Diameter 3.3 cm LA Systolic Diameter LX 3.8 cm 3.0 - 4.0 / 2.7 - 3.8 cm M-MODE AV Cusp Separation MM 2.2 cm DOPPLER AV Peak Velocity 80.0 cm/s AV Peak Gradient 2.6 mmHg AV Mean Gradient 2.0 mmHg AV Velocity Time Integral 15.0 cm LVOT Peak Velocity 57.9 cm/s LVOT Peak Gradient 1.3 mmHg LVOT Velocity Time Integral 8.5 cm AV Area Cont Eq vti 2.4 cm AV Area Cont Eq pk 3.0 cm Mitral E Point Velocity 60.2 cm/s Mitral A Point Velocity 55.8 cm/s Mitral E to A Ratio 1.1 LV E' Lateral Velocity 9.9 cm/s Mitral E to LV E' Lateral Ratio 6.1 LV E' Septal Velocity 8.9 cm/s Mitral E to LV E' Septal Ratio 6.8 PV Peak Velocity 84.2 cm/s PV Peak Gradient 2.8 mmHg FINDINGS RIGHT VENTRICLE Normal right ventricular size and systolic function. LEFT ATRIUM The left atrial size is normal. RIGHT ATRIUM The right atrium is not well visualized. ATRIAL SEPTUM The interatrial septum not well visualized. AORTA The aortic root and proximal ascending aorta are not well visualized. MITRAL VALVE Structurally normal mitral valve. No mitral valve stenosis. No mitral valve regurgitation. AORTIC VALVE Aortic valve sclerosis is present. No aortic valve stenosis. Trace aortic valve regurgitation. TRICUSPID VALVE The tricuspid valve is not well visualized. PULMONARY VALVE The pulmonary valve is not well visualized. No pulmonary valve regurgitation. No pulmonary stenosis. VESSELS The inferior vena cava was not well visualized. Otakar Quadrat MD, FACC (Electronically Signed) Final Date:28 October 2016 20:07
[2016-10-28] MEDS: INSULIN DETEMIR 100 UNITS/ML VIAL SQ SCH (21:26)
[2016-10-28] MEDS: ATORVASTATIN 10 MG TAB PO SCH (21:37)
[2016-10-28] MEDS: ACETAMINOPHEN/HYDROcodone 325 MG/5 MG TAB PO PRN (21:38)
[2016-10-29] VITALS (7 sets, daily range): BP systolic 168–191; BP diastolic 77–91; PULSE 73–81; RESP 17–19; TEMP 97.9–98.7; O2SAT 94–99
[2016-10-29] MEDS: HEPARIN SODIUM - SQ 10,000 UNITS/ML VIAL SQ SCH ×2 (03:34→13:19)
[2016-10-29] MEDS: INSULIN ASPART SUPPLEMENTAL SCALE SQ SCH ×4 (07:00→21:04)
[2016-10-29] MEDS: SODIUM CHLORIDE 0.9% FLUSH 5 ML FLUSH IV FLUSH SCH ×2 (09:00→21:27)
[2016-10-29] MEDS: THIAMINE HCL 100 MG TAB PO SCH (09:03)
[2016-10-29] MEDS: LISINOPRIL 20 MG TAB PO SCH ×2 (09:03→21:27)
[2016-10-29] MEDS: ASPIRIN 81 MG CHEW TAB PO SCH (09:04)
[2016-10-29] MEDS ORDERED: ENALAPRILAT 2.5 MG/2 ML VIAL IV PUSH PRN (10:30)
--- NOTE | 2016-10-29 10:35 | HHI.PR ---
Subjective Remarks Follow-up CVA 10/28/16-patient seen and examined, brain MRI positive for large acute infarct of the cerebellum. Although patient continues to complain of equilibrium problem as he described it, he reported improvement of symptoms since admission. 10/29/16-patient seen and examined, with some issue with equilibrium with standing otherwise stable. by the bedside Objective Vitals Vital Signs Date Time Temp Pulse Resp B/P (MAP) Pulse Ox O2 Delivery O2 Flow Rate FiO2 10/29/16 08:00 98.2 79 17 184/91 (122) 94 10/29/16 03:46 98.1 79 18 191/90 (123) 98 10/29/16 00:52 97.9 79 18 182/78 (112) 99 10/28/16 21:08 98.3 77 18 187/90 (122) 95 10/28/16 16:45 98.1 88 20 168/77 (107) 96 10/28/16 12:27 98.1 79 20 169/78 (108) 96 I/O 10/28/16 10/28/16 10/28/16 10/29/16 10/29/16 10/29/16 06:59 14:59 22:59 06:59 14:59 22:59 Intake Total 480 ml Balance 480 ml Intake Oral 480 ml # Voids 1 5 # Bowel Movements 1 Result Diagram: 10/27/16 1235 10/27/16 1235 Imaging Last Impressions Head CT 10/27/16 1231 Signed Impressions: Service Date/Time: Thursday, October 27, 2016 13:21 - CONCLUSION: 1. Small area of decreased density in the right centrum semi-ovale location. The appearance suggests a small subacute infarct. No focal or acute intracranial hemorrhage. Recommend MRI of the brain for further evaluation. 2. Bilateral chronic maxillary sinus disease, right greater than left. Chepe Macario MD Chest X-Ray 10/27/16 1231 Signed Impressions: Service Date/Time: Thursday, October 27, 2016 13:01 - CONCLUSION: Mildly enlarged cardiac silhouette. Otherwise negative exam. Consider further evaluation with echocardiography. . Purvi Aguilar MD Head Magnetic Resonance Angiography 10/27/16 0000 Signed Impressions: Service Date/Time: Thursday, October 27, 2016 16:27 - CONCLUSION: No acute disease. Binu Powell MD Carotid Artery Ultrasound 10/27/16 0000 Signed Impressions: Service Date/Time: Thursday, October 27, 2016 20:43 - CONCLUSION: 1. No hemodynamically significant stenosis involving the internal carotid arteries bilaterally. 2. Probable 50-69%% stenoses involving the left common and external carotid arteries. Binu Powell MD Brain MRI 10/27/16 0000 Signed Impressions: Service Date/Time: Thursday, October 27, 2016 16:27 - CONCLUSION: 1. Relatively large acute infarct of the cerebellum as above, predominantly involving the inferomedial portions of the right cerebellar hemisphere. 2. No acute supratentorial abnormality demonstrated. There are mild to moderate chronic periventricular white matter changes. 3. No bleed, mass or midline shift. No cerebellar tonsillar herniation at this time. Tres Sequeira MD Objective Remarks GENERAL: NAD SKIN: Warm and dry. HEAD: Normocephalic. EYES: No scleral icterus. No injection or drainage. NECK: Supple, trachea midline. No JVD or lymphadenopathy. CARDIOVASCULAR: Regular rate and rhythm without murmurs, gallops, or rubs. RESPIRATORY: Breath sounds equal bilaterally. No accessory muscle use. GASTROINTESTINAL: Abdomen soft, non-tender, nondistended. MUSCULOSKELETAL: No cyanosis, or edema. BACK: Nontender without obvious deformity. No CVA tenderness. Procedures none A/P Problem List: (1) Acute cerebrovascular accident (CVA) of cerebellum ICD Code: I63.9 - Cerebral infarction, unspecified (2) CVA (cerebral infarction) ICD Code: I63.9 - CVA (cerebral infarction) Status: Acute (3) Hypertensive emergency ICD Code: I16.1 - Hypertensive emergency (4) Diabetes mellitus type 2, uncontrolled, with complications ICD Code: E11.8 - Type 2 diabetes mellitus with unspecified complications; E11.65 - Type 2 diabetes mellitus with hyperglycemia (5) Obesity (BMI 30-39.9) ICD Code: E66.9 - Obesity, unspecified (6) Hyperlipidemia ICD Code: E78.5 - Hyperlipidemia, unspecified (7) Alcohol abuse ICD Code: F10.10 - Alcohol abuse, uncomplicated Assessment and Plan 51-year-old man with Acute CVA of the cerebellum Patient with previous history of CVA in 2013 Continue aspirin and Lipitor NIHSS, neuro check, monitor on telemetry d/c permissive hypertension lipid profile 139 and hemoglobin A1c 6.0 carotid ultrasound with 50-60% stenoses involving the left common and external carotid artery Head CT 10/27/16 noted and review by me with finding of small subacute infarct brain MRI with acute infarct of the cerebellum, brain MRI MRA negative Neurology input appreciated Consult rehabilitation medicine; OT consultation pending Holter monitoring PT to treat and eval Hypertensive emergency Resolved status post treatment in ED 2-D echo 60-65% EF Labile hypertension Increase lisinopril to 20 mg every 12 hours and add clonidine 0.2 mg every 8H Elevated cardiac enzyme Likely due to hypertensive emergency ACS ruled out per protocol with serial cardiac enzyme and EKGs 2-D echo with 60-65% EF Diabetes type 2, uncontrolled hemoglobin A1c 6.0 therefore will hold Levemir 15 units at bedtime and continue medium sliding scale insulin Hyperlipidemia lipid profile with LDL of 139 Continue Lipitor Leukocytosis Stress reactive, continue to monitor Alcohol abuse Alcohol cessation counseling provided ESTER Garza protocol DVT prophylaxis: Heparin Valentin Pires MD Oct 29, 2016 10:35
[2016-10-29] MEDS: cloNIDine HCL 0.2 MG TAB PO SCH ×2 (13:20→21:26)
--- NOTE | 2016-10-29 16:02 | HM ---
Date Performed: 10/28/2016 Time Performed: 10:11:00 HOOKUP DATE: 10/28/16 10:11:00 AM Mon ANALYSIS START TIME: 10/28/2016 10:16:00 AM ANALYSIS END TIME: 10/29/2016 9:56:42 AM PATIENT AGE: 51 PATIENT HEIGHT PATIENT WEIGHT DRUG LIST PATIENT DIAGNOSIS: CVA TEST NARRATIVE: The patient's average heart rate was 80 BPM. No episodes of tachycardia wer e noted. No episodes of bradycardia were noted. No pauses exceeding 2.0 seconds were noted. 374 ventricular ectopics, which represented < 1% of the total beat count, were noted. The highest ve ntricular ectopic frequency occurred from 03:00 AM to 04:00 AM Tue. During this time 25 VE(s) occurr ed. Ventricular ectopics were observed as 372 isolated beat(s) and as 1 couplet(s). No runs were no rafi. No supraventricular ectopics were noted. Multiple episodes of ST depression (defined as -1.0 mm or more) were noted in channel 1. The maximum depression of -1.2 mm occurred at 04:15:38 PM Mon. No episodes of ST depression (defined as -1.0 mm or more) were noted in channel 2. No episode s of ST depression (defined as -1.0 mm or more) were noted in channel 3. no diary maintained TEST INTERPRETATION: Patient undergoes holter monitor to see if there is any relationship of his neurologic complaints with a rhythm disturbance. No diary is provided. Only the expanded tracings ar e subject to interpretation. Patient is in Sinus rhythm throughout the monitoring session with occassional PVCs and one possible couplet. No complex ventric ular ectopy is noted. No supraventricular rhythm disturbances are noted. No bradycardias noted. Concl usions: 1) essentially normal holter monitor with rare PVCs, 2) no complex ventricular ectopy, 3) no significant tachyarrhythmias or bradyarrhythmias, 4) no diary provided, so it is unknown as to whethe r the patient is symptomatic. Sig ghulam by : Elena Colon
--- NOTE | 2016-10-29 17:10 | PD.CONS ---
[facility] Service Rehabilitation Medicine Consult Requested By Valentin Pires M.D. Reason for Consult Comprehensive rehabilitation evaluation. Primary Care Physician No Primary Care Physician History of Present Illness Binu Diaz is a 51-year-old male admitted [facility] 10/27/16 with dizziness and diaphoresis. BP was 240/102. Head CT shows small decreased density in the right centrum semiovale [place] consistent with subacute infarct. Brain MRI showed right cerebellar infarct 3.8 x 4.9 cm. Aspirin has been started. Review of Systems Constitutional: COMPLAINS OF: Fatigue Eyes: COMPLAINS OF: Blurred vision, DENIES: Diplopia Ears, nose, mouth, throat: DENIES: Hearing loss Respiratory: DENIES: Shortness of breath Cardiovascular: DENIES: Chest pain Gastrointestinal: DENIES: Abdominal pain Genitourinary: COMPLAINS OF: Urgency, DENIES: Urinary incontinence Musculoskeletal: DENIES: Back pain Integumentary: DENIES: Rash Hematologic/lymphatic: DENIES: Bruising Immunologic/allergic: DENIES: Urticaria Neurologic: COMPLAINS OF: Localized weakness, Paresthesias, Poor Balance, DENIES: Headache, Speech Problems Psychiatric: DENIES: Confusion Past Family Social History Allergies: Coded Allergies: No Known Allergies (Unverified , 10/27/16) Past Medical History Hypertension Hyperlipidemia Diabetes type 2 Cerebrovascular accident with left-sided weakness 2012 Past Surgical History None Current Medications Current Medications Medications (Trade) Dose Ordered Sig/Maribell Route Start Time Stop Time Status Last Admin (NS Flush) 2 ml UNSCH PRN IVF 10/27/16 12:45 10/28/16 09:53 (NS Flush) 2 ml BID IV FLUSH 10/27/16 21:00 10/29/16 09:00 (NS Flush) 2 ml UNSCH PRN IV FLUSH 10/27/16 14:45 (Aspirin Chew) 81 mg DAILY PO 10/28/16 09:00 10/29/16 09:04 (Lipitor) 10 mg HS PO 10/27/16 21:00 10/28/16 21:37 (Heparin Inj) 5,000 units Q12H SQ 10/27/16 14:45 10/29/16 13:19 (Tylenol) 650 mg Q4H PRN PO 10/27/16 14:45 (Zofran Inj) 4 mg Q6H PRN IVP 10/27/16 14:45 (Tylenol) 650 mg Q6H PRN PO 10/27/16 14:45 ([place] 5-325 Mg) 1 tab Q4H PRN PO 10/27/16 14:45 10/28/16 21:38 (D50w (Vial) Inj) 50 ml UNSCH PRN IV 10/27/16 14:45 (Glucagon Inj) 1 mg UNSCH PRN OTHER 10/27/16 14:45 (NovoLOG SUPPLEMENTAL SCALE) 1 ACHS SLIDING SCALE SQ 10/27/16 16:00 10/28/16 16:00 (Levemir Inj) 15 units HS SQ 10/27/16 21:00 Future Hold 10/28/16 21:26 (Romazicon Inj) 0.2 mg Q1M PRN IV PUSH 10/27/16 15:15 (Ativan) 1 mg Q4H PRN PO 10/27/16 15:15 (Ativan Inj) 1 mg Q4H PRN IV PUSH 10/27/16 15:15 (Ativan) 2 mg Q2H PRN PO 10/27/16 15:15 (Ativan Inj) 2 mg Q2H PRN IV PUSH 10/27/16 15:15 (Ativan Inj) 2 mg Q1H PRN IV PUSH 10/27/16 15:15 (Ativan Inj) 2 mg Q15M PRN IV PUSH 10/27/16 15:15 (Vitamin B1) 100 mg DAILY PO 10/28/16 09:00 10/29/16 09:03 (Prinivil) 20 mg Q12HR PO 10/29/16 09:00 10/29/16 09:03 (Vasotec Inj) 2.5 mg Q6H PRN IV PUSH 10/29/16 10:30 (Catapres) 0.2 mg Q8HR PO 10/29/16 14:00 10/29/16 13:20 Family History Mother: Diabetes mellitus Father: Heart disease Social History Prior to admission patient lived in [facility], he occasionally used a cane due to residual left-sided weakness. He was independent with ADLs. Exam I&O / VS 10/29/16 10/29/16 10/30/16 14:59 22:59 06:59 Intake Total 720 ml Output Total 1 ml Balance -1 ml 720 ml Intake Oral 720 ml Output Urine Total 1 ml # Voids 1 2 # Bowel Movements 1 1 Vital Signs Date Time Temp Pulse Resp B/P (MAP) Pulse Ox O2 Delivery O2 Flow Rate FiO2 10/29/16 16:00 97.9 79 17 168/77 (107) 98 10/29/16 12:00 98.0 80 17 183/90 (121) 98 10/29/16 11:09 73 10/29/16 08:00 98.2 79 17 184/91 (122) 94 10/29/16 03:46 98.1 79 18 191/90 (123) 98 10/29/16 00:52 97.9 79 18 182/78 (112) 99 10/28/16 21:08 98.3 77 18 187/90 (122) 95 General: No acute distress Respiratory: Lungs CTA, Non-labored respirations, BS equal Gastrointestinal: Positive Bowel Sounds, Non-Distended, Non-Tender Cardiovascular: Normal rate, Normal peripheral perfusion, Regular Rhythm Skin: Other (no rash noted) Musculoskeletal: Swelling (no distal lower extremity edema) Psychiatric: Cooperative, Appropriate mood & affect Orientation: oriented to Self, oriented to Place, oriented to Time, oriented to Situation Neurologic: Pupils (PERRLA), EOM (intact), Visual Alvarado (intact to confrontation), Facial Symmetry (symmetric), Speech (no dysarthria or word finding difficulties), Coordination (decreased in the left upper extremity) Motor: Right Upper Extremity (5/5), Left Upper Extremity (4+/5), Right Lower Extremity (5/5), Left Lower Extremity (4/5) Sensory Intact to light touch in the upper lower extremities DTRs: Normal Babinski: Positive Clonus: Negative Assessment and Plan Diagnosis: (1) Impaired gait ICD Codes: R26.9 - Impaired gait Status: Acute (2) Acute cerebrovascular accident (CVA) of cerebellum ICD Codes: I63.9 - Cerebral infarction, unspecified Assessment 1. Right cerebellar ischemic stroke 2. Impaired mobility and ADLs due to above 3. Hypertension 4. Hyperlipidemia 5. Diabetes mellitus type 2 6. Previous stroke 2013 with residual left-sided weakness Plan 1. Patient is progressing with mobility and now contact guard to min assist with physical therapy for transfers and gait 120 feet with walker. Would continue to mobilize anticipating patient should progress well 2. Occupational therapy is addressing ADLs and minimal assistance for lower body dressing but independent for feeding and grooming 3. Tolerating regular diet. 4. Discussed fall prevention 5. SCDs and mobilization for DVT prophylaxis 6. Case management is assisting with [facility]. Will follow in outpatient clinic to facilitate referral for outpatient physical therapy to maximize mobility as appropriate Thank you for this consult Daina Lenz MD Oct 29, 2016 17:10
[2016-10-29] MEDS: ATORVASTATIN 10 MG TAB PO SCH (21:27)
[2016-10-29] MEDS: ACETAMINOPHEN/HYDROcodone 325 MG/5 MG TAB PO PRN (21:29)
[2016-10-30] VITALS (7 sets, daily range): BP systolic 143–165; BP diastolic 66–80; PULSE 64–77; RESP 18–20; TEMP 97.8–98.4; O2SAT 96–99
[2016-10-30] MEDS: HEPARIN SODIUM - SQ 10,000 UNITS/ML VIAL SQ SCH ×2 (02:28→13:32)
[2016-10-30] MEDS: cloNIDine HCL 0.2 MG TAB PO SCH ×3 (05:49→23:46)
[2016-10-30] MEDS: INSULIN ASPART SUPPLEMENTAL SCALE SQ SCH ×4 (06:40→20:40)
[2016-10-30] MEDS: THIAMINE HCL 100 MG TAB PO SCH (08:36)
[2016-10-30] MEDS: ASPIRIN 81 MG CHEW TAB PO SCH (08:37)
[2016-10-30] MEDS: LISINOPRIL 20 MG TAB PO SCH ×2 (08:37→20:38)
[2016-10-30] MEDS: SODIUM CHLORIDE 0.9% FLUSH 5 ML FLUSH IV FLUSH SCH ×2 (08:38→20:42)
--- NOTE | 2016-10-30 11:55 | HHI.PR ---
Subjective Remarks Follow-up CVA 10/28/16-patient seen and examined, brain MRI positive for large acute infarct of the cerebellum. Although patient continues to complain of equilibrium problem as he described it, he reported improvement of symptoms since admission. 10/29/16-patient seen and examined, with some issue with equilibrium with standing otherwise stable. by the bedside 10/30/16-patient seen and examined, complaining of dizzy feeling when up, got. Drug urine Otherwise no complaint of dysuria Objective Vitals Vital Signs Date Time Temp Pulse Resp B/P (MAP) Pulse Ox O2 Delivery O2 Flow Rate FiO2 10/30/16 08:21 97.9 71 20 165/77 (106) 98 10/30/16 08:00 77 10/30/16 04:00 98.4 69 20 147/79 (101) 99 10/30/16 00:00 97.9 64 19 143/66 (91) 98 10/29/16 21:25 98.7 81 19 175/77 (109) 97 10/29/16 16:00 97.9 79 17 168/77 (107) 98 10/29/16 12:00 98.0 80 17 183/90 (121) 98 I/O 10/29/16 10/29/16 10/29/16 10/30/16 10/30/16 10/30/16 07:00 15:00 23:00 07:00 15:00 23:00 Intake Total 720 ml Output Total 1 ml 550 ml Balance -1 ml 170 ml Intake Oral 720 ml Output Urine Total 1 ml 550 ml # Voids 1 1 2 1 # Bowel Movements 1 1 Result Diagram: 10/27/16 1235 10/27/16 1235 Objective Remarks GENERAL: NAD SKIN: Warm and dry. HEAD: Normocephalic. EYES: No scleral icterus. No injection or drainage. NECK: Supple, trachea midline. No JVD or lymphadenopathy. CARDIOVASCULAR: Regular rate and rhythm without murmurs, gallops, or rubs. RESPIRATORY: Breath sounds equal bilaterally. No accessory muscle use. GASTROINTESTINAL: Abdomen soft, non-tender, nondistended. MUSCULOSKELETAL: No cyanosis, or edema. BACK: Nontender without obvious deformity. No CVA tenderness. Procedures none A/P Problem List: (1) Acute cerebrovascular accident (CVA) of cerebellum ICD Code: I63.9 - Cerebral infarction, unspecified (2) CVA (cerebral infarction) ICD Code: I63.9 - CVA (cerebral infarction) Status: Acute (3) Hypertensive emergency ICD Code: I16.1 - Hypertensive emergency (4) Diabetes mellitus type 2, uncontrolled, with complications ICD Code: E11.8 - Type 2 diabetes mellitus with unspecified complications; E11.65 - Type 2 diabetes mellitus with hyperglycemia (5) Obesity (BMI 30-39.9) ICD Code: E66.9 - Obesity, unspecified (6) Hyperlipidemia ICD Code: E78.5 - Hyperlipidemia, unspecified (7) Alcohol abuse ICD Code: F10.10 - Alcohol abuse, uncomplicated Assessment and Plan 51-year-old man with Acute CVA of the cerebellum Patient with previous history of CVA in 2012 Continue aspirin and Lipitor NIHSS, neuro check, monitor on telemetry s/p permissive hypertension lipid profile 139 and hemoglobin A1c 6.0 carotid ultrasound with 50-60% stenoses involving the left common and external carotid artery Head CT 10/27/16 noted and review by me with finding of small subacute infarct brain MRI with acute infarct of the cerebellum, brain MRI MRA negative Neurology input appreciated Appreciate input from rehabilitation medicine; OT/PT Holter report noted PT to treat and eval Hypertensive emergency Resolved status post treatment in ED 2-D echo 60-65% EF Labile hypertension Continue lisinopril 20 mg every 12 hours and clonidine 0.2 mg every 8H Elevated cardiac enzyme Likely due to hypertensive emergency ACS ruled out per protocol with serial cardiac enzyme and EKGs 2-D echo with 60-65% EF Diabetes type 2, uncontrolled hemoglobin A1c 6.0 and Levemir 15 units at bedtime was discontinued yesterday however will continue medium sliding scale insulin Hyperlipidemia lipid profile with LDL of 139 Continue Lipitor Leukocytosis Stress reactive, continue to monitor Alcohol abuse Alcohol cessation counseling provided ESTER Garza protocol DVT prophylaxis: Heparin Discharge Planning Likely discharge 10/31/16 Valentin Pires MD Oct 30, 2016 11:55
[2016-10-30] MEDS: ATORVASTATIN 10 MG TAB PO SCH (20:38)
[2016-10-31] VITALS: BP 138/64; PULSE 72; RESP 18; TEMP 98.2; O2SAT 98
[2016-10-31] MEDS: HEPARIN SODIUM - SQ 10,000 UNITS/ML VIAL SQ SCH ×2 (05:23→14:15)
[2016-10-31] MEDS: cloNIDine HCL 0.2 MG TAB PO SCH ×2 (06:01→14:15)
[2016-10-31] MEDS: INSULIN ASPART SUPPLEMENTAL SCALE SQ SCH ×2 (06:06→12:17)
[2016-10-31] MEDS: SODIUM CHLORIDE 0.9% FLUSH 10 ML FLUSH IVF PRN (08:07)
[2016-10-31] MEDS: THIAMINE HCL 100 MG TAB PO SCH (08:07)
[2016-10-31] MEDS: LISINOPRIL 20 MG TAB PO SCH (08:08)
[2016-10-31] MEDS: ASPIRIN 81 MG CHEW TAB PO SCH (08:08)
[2016-10-31] MEDS: SODIUM CHLORIDE 0.9% FLUSH 5 ML FLUSH IV FLUSH SCH (09:00)
[2016-10-31] MEDS ORDERED: BARIATRIC ROLLA1 MIS (11:30)
--- NOTE | 2016-10-31 11:32 | HHI.PR ---
Subjective Remarks Follow-up CVA 10/28/16-patient seen and examined, brain MRI positive for large acute infarct of the cerebellum. Although patient continues to complain of equilibrium problem as he described it, he reported improvement of symptoms since admission. 10/29/16-patient seen and examined, with some issue with equilibrium with standing otherwise stable. by the bedside 10/30/16-patient seen and examined, complaining of dizzy feeling when up, got. Drug urine Otherwise no complaint of dysuria 10/31/16-patient seen and examined, still complain of dizziness otherwise stable Objective Vitals Vital Signs Date Time Temp Pulse Resp B/P (MAP) Pulse Ox O2 Delivery O2 Flow Rate FiO2 10/31/16 00:00 98.2 72 18 138/64 (88) 98 10/30/16 20:00 98.4 74 18 146/67 (93) 98 10/30/16 15:57 98.2 70 20 156/80 (105) 99 10/30/16 11:58 97.8 68 20 157/77 (103) 96 I/O 10/30/16 10/30/16 10/30/16 10/31/16 10/31/16 10/31/16 06:59 14:59 22:59 06:59 14:59 22:59 Intake Total 240 ml Output Total 461 ml Balance -221 ml Intake Oral 240 ml Output Urine Total 460 ml Stool Total 1 ml # Voids 1 4 # Bowel Movements 1 Result Diagram: 10/27/16 1235 10/27/16 1235 Imaging Last Impressions Head CT 10/27/16 1231 Signed Impressions: Service Date/Time: Thursday, October 27, 2016 13:21 - CONCLUSION: 1. Small area of decreased density in the right centrum semi-ovale location. The appearance suggests a small subacute infarct. No focal or acute intracranial hemorrhage. Recommend MRI of the brain for further evaluation. 2. Bilateral chronic maxillary sinus disease, right greater than left. Chepe Macario MD Chest X-Ray 10/27/16 1231 Signed Impressions: Service Date/Time: Thursday, October 27, 2016 13:01 - CONCLUSION: Mildly enlarged cardiac silhouette. Otherwise negative exam. Consider further evaluation with echocardiography. . Purvi Aguilar MD Head Magnetic Resonance Angiography 10/27/16 0000 Signed Impressions: Service Date/Time: Thursday, October 27, 2016 16:27 - CONCLUSION: No acute disease. Binu Powell MD Carotid Artery Ultrasound 10/27/16 0000 Signed Impressions: Service Date/Time: Thursday, October 27, 2016 20:43 - CONCLUSION: 1. No hemodynamically significant stenosis involving the internal carotid arteries bilaterally. 2. Probable 50-69%% stenoses involving the left common and external carotid arteries. Binu Powell MD Brain MRI 10/27/16 0000 Signed Impressions: Service Date/Time: Thursday, October 27, 2016 16:27 - CONCLUSION: 1. Relatively large acute infarct of the cerebellum as above, predominantly involving the inferomedial portions of the right cerebellar hemisphere. 2. No acute supratentorial abnormality demonstrated. There are mild to moderate chronic periventricular white matter changes. 3. No bleed, mass or midline shift. No cerebellar tonsillar herniation at this time. Tres Sequeira MD Objective Remarks GENERAL: NAD SKIN: Warm and dry. HEAD: Normocephalic. EYES: No scleral icterus. No injection or drainage. NECK: Supple, trachea midline. No JVD or lymphadenopathy. CARDIOVASCULAR: Regular rate and rhythm without murmurs, gallops, or rubs. RESPIRATORY: Breath sounds equal bilaterally. No accessory muscle use. GASTROINTESTINAL: Abdomen soft, non-tender, nondistended. MUSCULOSKELETAL: No cyanosis, or edema. BACK: Nontender without obvious deformity. No CVA tenderness. Procedures none A/P Problem List: (1) Acute cerebrovascular accident (CVA) of cerebellum ICD Code: I63.9 - Cerebral infarction, unspecified (2) CVA (cerebral infarction) ICD Code: I63.9 - CVA (cerebral infarction) Status: Acute (3) Hypertensive emergency ICD Code: I16.1 - Hypertensive emergency (4) Diabetes mellitus type 2, uncontrolled, with complications ICD Code: E11.8 - Type 2 diabetes mellitus with unspecified complications; E11.65 - Type 2 diabetes mellitus with hyperglycemia (5) Obesity (BMI 30-39.9) ICD Code: E66.9 - Obesity, unspecified (6) Hyperlipidemia ICD Code: E78.5 - Hyperlipidemia, unspecified (7) Alcohol abuse ICD Code: F10.10 - Alcohol abuse, uncomplicated Assessment and Plan 51-year-old man with Acute CVA of the cerebellum Patient with previous history of CVA in 2013 Continue aspirin and Lipitor NIHSS, neuro check, monitor on telemetry s/p permissive hypertension lipid profile 139 and hemoglobin A1c 6.0 carotid ultrasound with 50-60% stenoses involving the left common and external carotid artery Head CT 10/27/16 noted and review by me with finding of small subacute infarct brain MRI with acute infarct of the cerebellum, brain MRI MRA negative Neurology input appreciated Appreciate input from rehabilitation medicine; OT/PT Holter report noted PT to treat and eval Hypertensive emergency Resolved status post treatment in ED 2-D echo 60-65% EF Labile hypertension Continue lisinopril 20 mg every 12 hours and clonidine 0.2 mg every 8H Elevated cardiac enzyme Likely due to hypertensive emergency ACS ruled out per protocol with serial cardiac enzyme and EKGs 2-D echo with 60-65% EF Diabetes type 2, uncontrolled hemoglobin A1c 6.0 and Levemir 15 units at bedtime was discontinued however will continue medium sliding scale insulin Hyperlipidemia lipid profile with LDL of 139 Continue Lipitor Leukocytosis Stress reactive, continue to monitor Alcohol abuse Alcohol cessation counseling provided ESTER Garza protocol Dizziness Complication from current cerebellar CVA Start meclizine Continue with PT DVT prophylaxis: Heparin Discharge Planning Likely discharge 10/31/16 Valentin Pires MD Oct 31, 2016 11:32
--- NOTE | 2016-10-31 11:38 | HHI.DS ---
Discharge Summary Admission Date Oct 27, 2016 at 13:57 Discharge Date: Oct 31, 2016 Admitting Diagnosis CVA, symptomatic hypertension (1) Acute cerebrovascular accident (CVA) of cerebellum ICD Code: I63.9 - Cerebral infarction, unspecified (2) CVA (cerebral infarction) ICD Code: I63.9 - CVA (cerebral infarction) Status: Acute (3) Hypertensive emergency ICD Code: I16.1 - Hypertensive emergency (4) Diabetes mellitus type 2, uncontrolled, with complications ICD Code: E11.8 - Type 2 diabetes mellitus with unspecified complications; E11.65 - Type 2 diabetes mellitus with hyperglycemia (5) Obesity (BMI 30-39.9) ICD Code: E66.9 - Obesity, unspecified (6) Hyperlipidemia ICD Code: E78.5 - Hyperlipidemia, unspecified (7) Alcohol abuse ICD Code: F10.10 - Alcohol abuse, uncomplicated Procedures none Brief History - From Admission 51-year-old male with multiple comorbidities including hypertension, hyperlipidemia, diabetes type 2, previous CVA in 2012 with left side weakness came to the ED for evaluation of worsening symptom dizziness, lightheadedness and profuse diaphoresis. Patient stated, episode of dizziness started yesterday but did not improve today after he woke up from sleep. They' re on 11:30, patient's notice that his equilibrium was off. This was followed by more episode of dizziness as well as 1 nonbloody emesis. He also reported a sensation of room spinning. Arrival in the ED, patient was noted to be extremely diaphoretic which he states did start 2 hours prior to coming to the ED. he was noted to have BP of 240/102 which subsequently improved to 163/70 with treatment. Patient has run out of his medications over the past [address] revealed small subacute CVA. He denies any visual change, slurred speech has no GI bleed. CBC/BMP: 10/27/16 1235 10/27/16 1235 Imaging Last Impressions Head CT 10/27/16 1231 Signed Impressions: Service Date/Time: Thursday, October 27, 2016 13:21 - CONCLUSION: 1. Small area of decreased density in the right centrum semi-ovale location. The appearance suggests a small subacute infarct. No focal or acute intracranial hemorrhage. Recommend MRI of the brain for further evaluation. 2. Bilateral chronic maxillary sinus disease, right greater than left. Chepe Macario MD Chest X-Ray 10/27/16 1231 Signed Impressions: Service Date/Time: Thursday, October 27, 2016 13:01 - CONCLUSION: Mildly enlarged cardiac silhouette. Otherwise negative exam. Consider further evaluation with echocardiography. . Purvi Aguilar MD Head Magnetic Resonance Angiography 10/27/16 0000 Signed Impressions: Service Date/Time: Thursday, October 27, 2016 16:27 - CONCLUSION: No acute disease. Binu Powell MD Carotid Artery Ultrasound 10/27/16 0000 Signed Impressions: Service Date/Time: Thursday, October 27, 2016 20:43 - CONCLUSION: 1. No hemodynamically significant stenosis involving the internal carotid arteries bilaterally. 2. Probable 50-69%% stenoses involving the left common and external carotid arteries. Binu Powell MD Brain MRI 10/27/16 0000 Signed Impressions: Service Date/Time: Thursday, October 27, 2016 16:27 - CONCLUSION: 1. Relatively large acute infarct of the cerebellum as above, predominantly involving the inferomedial portions of the right cerebellar hemisphere. 2. No acute supratentorial abnormality demonstrated. There are mild to moderate chronic periventricular white matter changes. 3. No bleed, mass or midline shift. No cerebellar tonsillar herniation at this time. Tres Sequeira MD PE at Discharge GENERAL: NAD SKIN: Warm and dry. HEAD: Normocephalic. EYES: No scleral icterus. No injection or drainage. NECK: Supple, trachea midline. No JVD or lymphadenopathy. CARDIOVASCULAR: Regular rate and rhythm without murmurs, gallops, or rubs. RESPIRATORY: Breath sounds equal bilaterally. No accessory muscle use. GASTROINTESTINAL: Abdomen soft, non-tender, nondistended. MUSCULOSKELETAL: No cyanosis, or edema. BACK: Nontender without obvious deformity. No CVA tenderness. Hospital Course Acute CVA of the cerebellum Patient with previous history of CVA in 2013 Continue aspirin and Lipitor NIHSS, neuro check, monitor on telemetry s/p permissive hypertension lipid profile 139 and hemoglobin A1c 6.0 carotid ultrasound with 50-60% stenoses involving the left common and external carotid artery Head CT 10/27/16 noted and review by me with finding of small subacute infarct brain MRI with acute infarct of the cerebellum, brain MRI MRA negative Neurology input appreciated Appreciate input from rehabilitation medicine; OT/PT Holter report noted PT to treat and eval Hypertensive emergency Resolved status post treatment in ED 2-D echo 60-65% EF Labile hypertension Continue lisinopril 20 mg every 12 hours and clonidine 0.2 mg every 8H Elevated cardiac enzyme Likely due to hypertensive emergency ACS ruled out per protocol with serial cardiac enzyme and EKGs 2-D echo with 60-65% EF Diabetes type 2, uncontrolled hemoglobin A1c 6.0 and Levemir 15 units at bedtime was discontinued however will continue medium sliding scale insulin Hyperlipidemia lipid profile with LDL of 139 Continue Lipitor Leukocytosis Stress reactive, continue to monitor Alcohol abuse Alcohol cessation counseling provided ESTER Garza protocol Dizziness Complication from current cerebellar CVA Start meclizine Continue with PT DVT prophylaxis: Heparin Pt Condition on Discharge: Stable Discharge Disposition: Discharge Home Discharge Time: > 30 minutes Discharge Instructions DIET: Follow Instructions for: Diabetic Diet Activities you can perform: Regular-No Restrictions Follow up Referrals: PCP Follow-up - 1 Week Physical Medicine & Rehab - 2 Months with Daina Lenz MD New Medications: Bariatric Rollator/Extra (Bariatric Rollator/Extra) 1 Mis Mis EA .ROUTE DIRECTED for Stroke Prevention, #1 Aspirin (Aspirin Low Strength) 81 Mg Chew 81 MG PO DAILY for Prevent Blood Clot, #30 EA 11 Refills Atorvastatin (Lipitor) 10 Mg Tab 10 MG PO HS for Cholesterol Management, #30 TAB 11 Refills Clonidine (Catapres) 0.2 Mg Tab 0.2 MG PO Q8HR for Blood Pressure Management, #90 TAB 11 Refills Lisinopril (Lisinopril) 20 Mg Tab 20 MG PO Q12HR for Blood Pressure Management, #60 TAB 11 Refills Meclizine HCl (Meclizine 25) 25 Mg Tab 25 MG PO Q6HR for Immunosuppression, #60 TAB Valentin Pires MD Oct 31, 2016 11:38
[2016-10-31] MEDS ORDERED: MECLIZINE HCL 25 MG TAB PO SCH (12:00)
[2016-10-31] MEDS ORDERED: LISI-515 PO (12:55)
[2016-10-31] MEDS ORDERED: MECL1TAB42 PO (12:55)
[2016-10-31] MEDS ORDERED: ASPI81CH25 PO (12:55)
[2016-10-31] MEDS ORDERED: CLON.2 PO (12:55)
[2016-10-31] MEDS ORDERED: LIPI10TA PO (12:55)
[2016-11-14] MEDS ORDERED: MULTTAB67 PO (12:06)
[2016-11-14] MEDS ORDERED: METF500T PO (12:21)
[2016-11-14] MEDS ORDERED: LISI-515 PO (12:21)
[2016-11-14] MEDS ORDERED: MECL1TAB42 PO (12:22)
== END 2016-10-31 15:21 | disposition home or self-care (01) | DRG 65 ==
LOC: NEPE 12:17 → NEDA 13:57 → N05A 17:51
PROVIDERS: ADMIT Hospitalist; ATTEND Hospitalist
DX: I63.9 Cerebral infarction, unspecified (principal); G81.94 Hemiplegia, unspecified affecting left nondominant side; E11.65 Type 2 diabetes mellitus with hyperglycemia; I10 Essential (primary) hypertension; I16.1 Hypertensive emergency; Z68.41 Body mass index [BMI] 40.0-44.9, adult; E78.5 Hyperlipidemia, unspecified; E66.9 Obesity, unspecified; F10.10 Alcohol abuse, uncomplicated; Z72.0 Tobacco use; Z83.3 Family history of diabetes mellitus; Z82.49 Family history of ischemic heart disease and other diseases of the circulatory system; Z91.128 Patient's intentional underdosing of medication regimen for other reason; Z91.19 Patient's noncompliance with other medical treatment and regimen
CPT/HCPCS: 70450; 70544; 70551; 71010; 80053; 80061; 80307; 81001; 82010; 82550; 82552; 82948; 83036; 83735; 84484; 85007; 85027; 85610; 85730; 93005; 93225; 93226; 93306; 93880; 96374; J1644; J1815; J7040